=== PATIENT | female | born 1945 | race Caucasian/White ===

== ENCOUNTER 2016-04-02 20:09 | Emergency (ER) | payer BC, MEDICARE ==
[2016-04-02 20:19] VITALS: BP 145/93
--- NOTE | 2016-04-02 20:45 | UC ---
Skin Complaint HPI - HPI Summary HPI Summary: left 4th toe callous from rubbing on her shoe--got increasingly red and pain ful 03/25/16 seen pcp 03/28/16 at that time erythema was to mid foot--todat her for a recheck to remains tender a swollen with a calloused scab on joint- erythema on foot resolved as well as swelling per patient---bone in to is not tender to touch - History of Current Complaint Chief Complaint: UCWounds Time Seen by Provider: 04/02/16 20:31 Stated Complaint: SORE ON TOE Hx Obtained From: Patient ?: No Onset/Duration: Gradual Onset, Lasting Days, Resolved - but not completely resovled Timing: Constant Onset Severity: Moderate Current Severity: Mild Location: Discrete - royer just left great toe Character: Swelling, Redness Aggravating: Nothing Alleviating: Heat Associated Signs & Symptoms: Positive: Negative - Allergy/Home Medications Allergies/Adverse Reactions: Allergies Allergy/AdvReac Type Severity Reaction Status Date / Time No Known Allergies Allergy Verified 04/02/16 20:19 Home Medications: Home Medications Cephalexin CAP* [Keflex 500 CAP*] 500 mg PO TID 04/02/16 [History Confirmed 05/18] Ropinirole TAB* [Requip TAB*] 04/02/16 [History] Review of Systems Constitutional: Negative Skin: Other - calllous and erythema as descrided Eyes: Negative ENT: Negative Respiratory: Negative Cardiovascular: Negative Gastrointestinal: Negative Genitourinary: Negative Motor: Negative Neurovascular: Negative Musculoskeletal: Negative Neurological: Negative Psychological: Negative All Other Systems Reviewed And Are Negative: Yes PMH/Surg Hx/FS Hx/Imm Hx Previously Healthy: No Endocrine History Of: Denies: Diabetes, Thyroid Disease Cardiovascular History Of: Reports: Hypertension - on medication Denies: Cardiac Disorders, Congestive Heart Failure Respiratory History Of: Reports: Asthma - EXERCISE INDUCED, Bronchitis - SEVERAL YRS AGO Denies: COPD GI/ History Of: Denies: Ulcer, Renal Disease Psychological History Of: Reports: Anxiety - meds - Surgical History Surgical History: Yes Surgery Procedure, Year, and Place: colectomy, back surgery, torn meniscus, ovarian cyst, bunion right foot - Family History Known Family History: Positive: None Family History: no know medical issues in family lineage - Social History Occupation: Employed Full-time Lives: With Family Alcohol Use: Occasionally Alcohol Amount: one glass Substance Use Type: None Smoking Status (MU): Former Smoker Amount Used/How Often: LESS THAN A PACK A DAY Length of Time of Smoking/Using Tobacco: 4 YEARS Have You Smoked in the Last Year: No When Did the Patient Quit Smoking/Using Tobacco: 1968 - Immunization History Most Recent Influenza Vaccination: 01/12 Most Recent Tetanus Shot: UNKNOWN Most Recent Pneumonia Vaccination: 1993 Physical Exam Triage Information Reviewed: Yes Appearance: Well-Appearing, No Pain Distress, Well-Nourished Vital Signs: Initial Vital Signs Temp 99.2 F 04/02/16 20:14 Pulse 80 04/02/16 20:14 Resp 16 04/02/16 20:14 BP 145/93 04/02/16 20:14 Pulse Ox 96 04/02/16 20:14 Vital Signs Reviewed: Yes Eye Exam: Normal Eyes: Positive: Conjunctiva Clear ENT Exam: Normal ENT: Positive: Normal ENT inspection, Hearing grossly normal. Negative: Nasal congestion, Nasal drainage, Trismus, Muffled/hoarse voice Neck exam: Normal Neck: Positive: Supple, Nontender Respiratory Exam: Normal Respiratory: Positive: Chest non-tender, Normal breath sounds, No respiratory distress, No accessory muscle use Cardiovascular Exam: Normal Cardiovascular: Positive: RRR, No Murmur, Pulses Normal, Brisk Capillary Refill Musculoskeletal Exam: Normal Musculoskeletal: Positive: Strength Intact, ROM Intact, Edema @ - swelling left 4th toe Neurological Exam: Normal Neurological: Positive: Alert Psychological Exam: Normal Psychological: Positive: Normal Response To Family Skin: Positive: Other - as described Course/Dx - Course Course Of Treatment: elevate foot, frequent warm compresses, add Bactrim re- check with pcp - Differential Diagnoses - Skin Complaint Differential Diagnoses: Allergic Reaction, Cellulitis, Impetigo, Local Allergic Reaction - Diagnoses Provider Diagnoses: Wound infection left 4th toe Discharge - Discharge Plan Condition: Stable Disposition: HOME Prescriptions: Sulfamethox/Trimethoprim DS* [Bactrim DS 800/160 TAB*] 1 tab PO BID #13 tab Patient Education Materials: Wound Infection (ED), Heat Pack Application (ED) Referrals: Samson Balbuena MD [Primary Care Provider] - 3 Days
[2016-04-02] MEDS ORDERED: Sulfamethox/Trimethoprim DS 800/160* TAB PO ONE (20:46)
== END 2016-04-02 21:19 | disposition home or self-care (01) ==
LOC: UCEAST 20:09
DX: L08.89 Other specified local infections of the skin and subcutaneous tissue (principal); L84 Corns and callosities; Z87.891 Personal history of nicotine dependence
CPT/HCPCS: 99212; A9270-GY; G0463

== ENCOUNTER → 2016-06-28 09:38 | Day surgery (SDC) | payer BC, MEDICARE ==
[~2016-06-28 09:38] MED LIST: Buffered Lidocaine 1% SYRIN* 3 ML/SYR SYRINGE INTRADERM ONE; Lidocain 1% EPI 1:100,000 * 30 ML MDV ONE; Lidocaine 2% PF* 5 ML VIAL ONE; Midazolam* 1 MG/ML 2 ML VIAL (2 MG) ONE; Propofol* 10 MG/ML 20 ML BTL IV PUSH ONE; ceFAZolin 2 GM PREMIX(*) 2 GM/50 ML BAG IVPB ONE; fentaNYL* 50 MCG/ML 2 ML VIAL (100 MCG VIAL) ONE
[2016-06-28 13:00] VITALS: BP 108/52
== END | disposition home or self-care (01) ==
LOC: OREAST 09:38
PROVIDERS: ATTEND Plastic Surgery
DX: L72.0 Epidermal cyst (principal); D04.39 Carcinoma in situ of skin of other parts of face; I10 Essential (primary) hypertension; J45.909 Unspecified asthma, uncomplicated; C91.10 Chronic lymphocytic leukemia of B-cell type not having achieved remission; D64.9 Anemia, unspecified
CPT/HCPCS: 88304; 88305; J0690; J2250; J2704; J3010

== ENCOUNTER 2016-08-04 19:27 | Emergency (ER) | payer BC, MEDICARE ==
[2016-08-04 19:40] VITALS: BP 146/68
[2016-08-04] MEDS ORDERED: Amoxicillin/Clavulanate TAB* 875 MG PO ONE (19:52)
[2016-08-04] MEDS ORDERED: Acetaminop/Codeine 30 MG TAB* 1 TAB (300 MG/30 MG) PO ONE (19:52)
--- NOTE | 2016-08-04 19:54 | UC ---
Ear Complaint HPI - HPI Summary HPI Summary: Patient recently returned from overse[place], has had increased ear pain and fever. - History of Current Complaint Chief Complaint: UCGeneralIllness Stated Complaint: EAR ACHE,COUGH Time Seen by Provider: 08/04/16 19:41 Hx Obtained From: Patient ?: No Onset/Duration: Sudden Onset, Lasting Days Severity Initially: Moderate Severity Currently: Moderate - Allergies/Home Medications Allergies/Adverse Reactions: Allergies Allergy/AdvReac Type Severity Reaction Status Date / Time No Known Allergies Allergy Verified 06/28/16 09:59 PMH/Surg Hx/FS Hx/Imm Hx Previously Healthy: Yes Endocrine History Of: Denies: Diabetes, Thyroid Disease Cardiovascular History Of: Reports: Hypertension - on medication Denies: Cardiac Disorders, Congestive Heart Failure Respiratory History Of: Reports: Asthma - EXERCISE INDUCED, Bronchitis - SEVERAL YRS AGO Denies: COPD GI/ History Of: Denies: Ulcer, Renal Disease Psychological History Of: Reports: Anxiety - meds - Surgical History Surgical History: Yes Surgery Procedure, Year, and Place: colectomy, back surgery, torn meniscus, ovarian cyst, bunion right foot - Family History Known Family History: Positive: None Negative: Hypertension - Social History Alcohol Use: Occasionally Alcohol Amount: one glass Substance Use Type: None Smoking Status (MU): Former Smoker Amount Used/How Often: LESS THAN A PACK A DAY Length of Time of Smoking/Using Tobacco: 4 YEARS Have You Smoked in the Last Year: No When Did the Patient Quit Smoking/Using Tobacco: 1968 - Immunization History Most Recent Influenza Vaccination: 01/12 Most Recent Tetanus Shot: UNKNOWN Most Recent Pneumonia Vaccination: 1993 Review of Systems Constitutional: Negative Skin: Negative Eyes: Negative ENT: Sore Throat, Ear Ache Respiratory: Cough Cardiovascular: Negative Gastrointestinal: Negative Genitourinary: Negative Motor: Negative Neurovascular: Negative Musculoskeletal: Negative Neurological: Negative Psychological: Negative All Other Systems Reviewed And Are Negative: Yes Physical Exam Triage Information Reviewed: Yes Appearance: Well-Appearing, Well-Nourished, Pain Distress Vital Signs: Initial Vital Signs Temp 100.7 F 08/04/16 19:34 Pulse 83 08/04/16 19:34 Resp 18 08/04/16 19:34 BP 146/68 08/04/16 19:34 Pulse Ox 97 08/04/16 19:34 Vital Signs Reviewed: Yes Eye Exam: Normal Eyes: Positive: Conjunctiva Clear ENT: Positive: Hearing grossly normal, Pharyngeal erythema, TM bulging, TM dull , TM red, Tonsillar swelling Dental Exam: Normal Neck exam: Normal Neck: Positive: Supple, Nontender, Enlarged Nodes @ - behind right ear Respiratory Exam: Normal Respiratory: Positive: Chest non-tender, Lungs clear, Normal breath sounds Cardiovascular Exam: Normal Cardiovascular: Positive: RRR, No Murmur, Pulses Normal Abdominal Exam: Normal Abdomen Description: Positive: Nontender, No Organomegaly, Soft Bowel Sounds: Positive: Present Musculoskeletal Exam: Normal Musculoskeletal: Positive: Strength Intact, ROM Intact Neurological Exam: Normal Neurological: Positive: Alert, Muscle Tone Normal Psychological Exam: Normal Skin Exam: Normal Ear Complaint Course/Dx - Course Course Of Treatment: hx obtained, exam performed, meds reviewed, treated for otitis media. - Differential Dx/Diagnosis Differential Diagnosis/HQI/PQRI: Bronchitis, Cerumen Impaction, Otitis Externa, Otitis Media, Trauma Provider Diagnoses: otitis media. cervical lymphadenopathy Discharge - Discharge Plan Condition: Stable Disposition: HOME Patient Education Materials: Otitis Media (ED) Additional Instructions: 1. take the medication as prescribed. 2. Increase fluid intake 3. GEt plenty of rest 4. follow up with any worsening symptoms
== END 2016-08-04 20:15 | disposition home or self-care (01) ==
LOC: UCEAST 19:27
DX: H66.90 Otitis media, unspecified, unspecified ear (principal); I10 Essential (primary) hypertension; R59.0 Localized enlarged lymph nodes; J45.990 Exercise induced bronchospasm; F41.9 Anxiety disorder, unspecified; Z87.891 Personal history of nicotine dependence
CPT/HCPCS: 99212; A9270-GY; G0463

== ENCOUNTER 2016-08-28 07:35 | Emergency (ER) | payer BC, MEDICARE ==
[2016-08-28 07:50] VITALS: BP 111/67
--- NOTE | 2016-08-28 08:16 | UC ---
Adal Jack SooYoung, scribed for Madalyn Lambert MD on 08/28/16 at 0741 . Bite Injury/Animal HPI - HPI Summary HPI Summary: A 70 y/o F [place] [facility] [place] tick bite on R shoulder first noticed it this AM, initial onset likely yesterday while mowing the lawn. Non-engorged tick is embedded presently on right shoulder. Pt reports mild erythema at site of wound with mild discomfort. no fevers, chills. No other complaints. Pt states she is UTD with her tetanus. Associated sx: surrounding erythema. PMHx: HTN; c. diff; chronic leukemia but is not on therapy for it, previously took Rituxan 5 years ago; colon CA in 2014 with chemotherapy and surgery, pt denies being on maintenance medications.. Non-smoker, daily drinker. Patients medication reviewed this visit. - History of Current Complaint Stated Complaint: TICK Hx Obtained From: Patient, Family/Produce Wrapper - ?: No Severity Currently: Mild Pain Intensity: 0 Pain Scale Used: 0-10 Numeric Onset/Duration: Sudden Onset, Lasting Hours - first noticed this AM, likely embedded yesterday, Still Present Type of Bite: Wild Animal - tick Associated Signs And Symptoms: Positive: Erythema - Allergies/Home Medications Allergies/Adverse Reactions: Allergies Allergy/AdvReac Type Severity Reaction Status Date / Time No Known Allergies Allergy Verified 06/28/16 09:59 PMH/Surg Hx/FS Hx/Imm Hx Previously Healthy: No Endocrine History Of: Denies: Diabetes, Thyroid Disease Cardiovascular History Of: Reports: Hypertension - on medication Denies: Cardiac Disorders, Congestive Heart Failure Respiratory History Of: Reports: Asthma - EXERCISE INDUCED, Bronchitis - SEVERAL YRS AGO Denies: COPD GI/ History Of: Denies: Ulcer, Renal Disease Psychological History Of: Reports: Anxiety - meds - Surgical History Surgical History: Yes Surgery Procedure, Year, and Place: colectomy, back surgery, torn meniscus, ovarian cyst, bunion right foot - Family History Known Family History: Positive: Other - BREAST CA - sister Negative: Hypertension - Social History Occupation: Employed Part-time Lives: With Family Alcohol Use: Occasionally Alcohol Amount: one glass Substance Use Type: None Smoking Status (MU): Former Smoker Amount Used/How Often: LESS THAN A PACK A DAY Length of Time of Smoking/Using Tobacco: 4 YEARS Have You Smoked in the Last Year: No When Did the Patient Quit Smoking/Using Tobacco: 1968 - Immunization History Most Recent Influenza Vaccination: 01/12 Most Recent Tetanus Shot: UNKNOWN Most Recent Pneumonia Vaccination: 1993 Review of Systems Constitutional: Negative Skin: Other - pos: erythema, tick present at R shoulder Eyes: Negative ENT: Negative Respiratory: Negative Cardiovascular: Negative Gastrointestinal: Negative Genitourinary: Negative Motor: Negative Neurovascular: Negative Musculoskeletal: Negative Neurological: Negative Psychological: Negative All Other Systems Reviewed And Are Negative: Yes Physical Exam Triage Information Reviewed: Yes Appearance: Well-Appearing, No Pain Distress, Well-Nourished Vital Signs: Initial Vital Signs Temp 98.5 F 08/28/16 07:41 Pulse 72 08/28/16 07:41 Resp 16 08/28/16 07:41 BP 111/67 08/28/16 07:41 Pulse Ox 99 08/28/16 07:41 Vital Signs Reviewed: Yes Eye Exam: Normal Eyes: Negative: Discharge ENT Exam: Normal ENT: Positive: Hearing grossly normal Neck: Positive: Supple Respiratory Exam: Normal Respiratory: Positive: Chest non-tender, Lungs clear, Normal breath sounds Cardiovascular Exam: Normal Cardiovascular: Positive: RRR, No Murmur, Pulses Normal Abdominal Exam: Normal Abdomen Description: Positive: Nontender, No Organomegaly, Soft Bowel Sounds: Positive: Present Musculoskeletal Exam: Normal Neurological Exam: Normal Neurological: Positive: Alert Psychological Exam: Normal Skin: Positive: Other - Right superior, anterior shoulder pt with a 2mm area erythema and live, burrowing tick - not engorged Bite Injury Course/Dx - Course Course Of Treatment: pt with live, non-engorged tick burrowed right anterior/ superior shoulder. area prepped with alcohol. Using tick remover, gentle traction and counterclockwise removed tick intact. area cleansed with alcohol. I spoke at length with pt and spouse regarding doxy prophylaxis and CDC recommendations. tick not engorged, < 24 hours. pt with h/o c dif. no doxy given. wound care. Pt in agreement with plan - Differential Dx/Diagnosis Provider Diagnoses: tick bite Discharge - Discharge Plan Condition: Stable Disposition: HOME Patient Education Materials: Tick Bite (ED) Referrals: Samson Balbuena MD [Primary Care Provider] - Additional Instructions: You had a tick removed from your skin today. Okay to take ibuprofen (Advil, Motrin) and Tylenol as needed for discomfort Keep area clean and dry Check yourself daily for ticks after you have been working in the [employer] Contact your doctor or return with questions or concerns Approach to prophylaxis : According to the Infectious Diseases Society of [place] (IDSA) guidelines that recommend antibiotic prophylaxis only in patients who meet all of the following criteria: 1. Attached tick identified as an adult or nymphal I. scapularis tick (deer tick). 2. Tick is estimated to have been attached for 36 hours (by degree of engorgement or time of exposure). 3. Prophylaxis is begun within 72 hours of tick removal. Local rate of infection of ticks with B. burgdorferi is 20 percent if attached for over 48 hours (these rates of infection have been shown to occur in parts of [place], parts of the [facility], and [place] If you experience a tick and time of attachment is believed to be less than 36 hours, you may remove the tick with head intact and no need for prophylaxis. If over 36 hours, please come into UC. Prophylactic doxycycline is not recommended for ticks attached less than 36 hours. The documentation as recorded by the Adal tracey SooYoung accurately reflects the service I personally performed and the decisions made by , Madalyn Lambert MD.
== END 2016-08-28 08:20 | disposition home or self-care (01) ==
LOC: UCEAST 07:35
DX: S40.261A Insect bite (nonvenomous) of right shoulder, initial encounter (principal); W57.XXXA Bitten or stung by nonvenomous insect and other nonvenomous arthropods, initial encounter; Y93.H2 Activity, gardening and landscaping
CPT/HCPCS: 99211; G0463

== ENCOUNTER 2017-12-20 15:35 | Emergency (ER) | payer MEDICARE, BC ==
[2017-12-20] MEDS ORDERED: Propranolol IV* 1 MG/ML 1 ML VIAL IV PUSH ONE (15:50)
[2017-12-20] MEDS ORDERED: HYDROmorphone INJ* 2 MG/ML CARPUJECT SYRINGE IV SLOW PU ONE (15:56)
[2017-12-20] MEDS ORDERED: NS 0.9% 1000 ML*IV.FLUID IV ONE (16:02)
[2017-12-20] MEDS ORDERED: Midazolam* 1 MG/ML 10 ML VIAL (10 MG) IV ONE (16:27)
--- NOTE | 2017-12-20 16:27 | ED ---
Upper Extremity Pain - HPI Summary HPI Summary: This patient is a 72 year old F presenting to [facility] with a chief complaint of dislocated left shoulder s/p a fall at 1330. Pt states she last had oral intake at 1200. Pt denies anesthesia reactions. Pt endorses full ROM in fingers. PMHx HTN; per EMS all vitals were stable en route. Pt was walking down stairs with laundry when she caught her heel on a step and started to fall. She said that she grabbed at a railing with her left arm, which dislocated from pulling while falling. - History of Current Complaint Chief Complaint: EDExtremityUpper Stated Complaint: FALL/SHOULDER PAIN Hx Obtained From: Patient Mechanism Of Injury: Fall From A Standing Position, Other - pulled Onset/Duration: Started Hours Ago, Traumatic, Still Present Timing: Constant Severity Initially: Severe Severity Currently: Severe Pain Location: Shoulder - L Aggravating Factor(s): Movement Alleviating Factor(s): Nothing Associated Signs & Symptoms: Positive: Other. Negative: Fever, Chest Pain, SOB , Back Pain, Neck Pain - Allergies/Home Medications Allergies/Adverse Reactions: Allergies Allergy/AdvReac Type Severity Reaction Status Date / Time No Known Allergies Allergy Verified 10/04/16 09:03 PMH/Surg Hx/FS Hx/Imm Hx Endocrine/Hematology History: Reports: Hx Anemia - CHRONIC LEUKEMIA SINCE AGE 48 , Other Endocrine/Hematological Disorders - Chronic Leukemia since Age 48 Denies: Hx Diabetes, Hx Systemic Lupus Erythematosus, Hx Thyroid Disease Cardiovascular History: Reports: Hx Hypertension - on medication, Hx Valvular Heart Disease - PROLAPSE VALVE Denies: Hx Congestive Heart Failure Respiratory History: Reports: Hx Asthma - EXERCISE INDUCED Denies: Hx Chronic Obstructive Pulmonary Disease (COPD) GI History: Reports: Other GI Disorders - COLECTOMY FOR COLON CANCER Denies: Hx Ulcer History: Denies: Hx Dialysis, Hx Renal Disease Musculoskeletal History: Reports: Hx Arthritis - HANDS, Other Musculoskeletal History - 1968 HX OF RUPTURED DISC Denies: Hx Rheumatoid Arthritis Sensory History: Reports: Hx Cataracts - BILATERAL, Hx Contacts or Glasses - CONTACTS WILL WEAR GLASSES DAY OF SURGERY Denies: Hx Hearing Aid Opthamlomology History: Reports: Hx Cataracts - BILATERAL, Hx Contacts or Glasses - CONTACTS WILL WEAR GLASSES DAY OF SURGERY Psychiatric History: Reports: Hx Anxiety - meds - Cancer History Cancer Type, Location and Year: colon Hx Chemotherapy: Yes - COLON Hx Radiation Therapy: No - Surgical History Surgery Procedure, Year, and Place: colectomy, back surgery, torn meniscus, ovarian cyst, bunion right foot, hernia repair ? left groin Hx Anesthesia Reactions: No Infectious Disease History: No Infectious Disease History: Reports: Hx Clostridium Difficile, Hx of Known/ Suspected MRSA - abdomen 2014 Denies: Hx Hepatitis, Hx Human Immunodeficiency Virus (HIV), Hx Shingles, Hx Tuberculosis, Hx Known/Suspected VRE, Hx Known/Suspected VRSA, History Other Infectious Disease, Traveled Outside the [place] in Last 30 Days - Family History Known Family History: Positive: Other - BREAST CA - sister Negative: Hypertension - Social History Occupation: Retired Alcohol Use: Daily Alcohol Amount: one glass wine Substance Use Type: Reports: None Smoking Status (MU): Former Smoker Amount Used/How Often: LESS THAN A PACK A DAY Length of Time of Smoking/Using Tobacco: 4 YEARS Have You Smoked in the Last Year: No Review of Systems Negative: Fever Negative: Blurred Vision, Diplopia Negative: Sore Throat, Ear Ache Negative: Chest Pain Negative: Shortness Of Breath Negative: Abdominal Pain Positive: no symptoms reported. Negative: dysuria Positive: Arthralgia - left shoulder, Decreased ROM Negative: Rash Negative: Headache All Other Systems Reviewed And Are Negative: No Physical Exam - Summary Physical Exam Summary: Appearance: Alert, conversive, nontoxic appearing Skin: Warm, dry, no mottling, no rashes, no contusions HEENT: EOMI, PERRL, moist mucous membranes Neck: No masses on the neck, supple Respiratory: Clear to auscultation, breath sounds present, no rales, no rhonchi , no wheezes Cardiovascular: RRR, pulses are symmetrical in both lower and upper extremities. Good radial pulse in LUE. Abdomen: Soft, non-tender Bowel Sounds: Present Musculoskeletal: No CVA tenderness, deformity to left shoulder, unable to rotate , pain with movement of elbow, able to move and flex wrist. Neurological: A&Ox3, CN II-XII Intact, moving all extremities symmetrically Psychiatric: Normal affect and mood Triage Information Reviewed: Yes Vital Signs On Initial Exam: Initial Vitals Temp Pulse Resp BP Pulse Ox 97.5 F 81 20 138/68 98 12/20/17 15:49 12/20/17 15:49 12/20/17 15:49 12/20/17 15:49 12/20/17 15:49 Vital Signs Reviewed: Yes Procedures - Joint Reduction Left shoulder Joint Reduction Site: shoulder (L) Conscious Sedation: Yes Pre-Procedure NV Exam: Yes - intact Post Joint Reduction Film: no fracture seen Diagnostics - Vital Signs Vital Signs Temp Pulse Resp BP Pulse Ox 12/20/17 16:00 20 12/20/17 15:49 97.5 F 81 20 138/68 98 - Laboratory Lab Statement: Any lab studies that have been ordered have been reviewed, and results considered in the medical decision making process. - Radiology Left Shoulder XR Xray Interpretation: Positive (See Comments) Radiology Interpretation Completed By: Radiologist - Left shoulder dislocation. Dr. Graves has reviewed this report. Post-reduction Xray Interpretation: Positive (See Comments) Radiology Interpretation Completed By: Radiologist - INTERVAL REDUCTION OF LEFT SHOULDER DISLOCATION. Dr. Graves has reviewed this report. Re-Evaluation - Re-Evaluation First Eval Re-Evaluation Time: 16:27 Change: Improved Comment: Pain is better but she is still not tolerating any movement of the shoulder. Second Eval Re-Evaluation Time: 18:43 Change: Improved Comment: Pt is still a little groggy, but awake and conversive. BP is a little soft, O2 sat is 90. She endorses she is having trouble staying awake, and denies any recollection of the procedure. Third Eval Re-Evaluation Time: 21:40 Change: Improved Comment: Pt feels much better, able to ambulate to bathroom, sit up in bed. Course/Dx - Course Course Of Treatment: A pre-reduction shoulder XR shows a left shoulder dislocation. A post-reduction shoulder XR shows INTERVAL REDUCTION OF LEFT SHOULDER DISLOCATION. - Diagnoses Provider Diagnoses: Shoulder dislocation Discharge - Sign-Out/Discharge Documenting (check all that apply): Patient Departure - discharge - Discharge Plan Condition: Stable Disposition: HOME Referrals: Aly Verdin DO [Primary Care Provider] - - Attestation Statements Document Initiated by Scribe: Yes Documenting Scribe: Steve Raygoza Provider For Whom Scribe is Documenting (Include Credential): Dr. Kira Graves MD Scribe Attestation: Steve Jack scribed for Dr. Kira Graves MD on 12/20/17 at 2140.
[2017-12-20] MEDS ORDERED: fentaNYL* 50 MCG/ML 2 ML VIAL (100 MCG VIAL) IV SLOW PU ONE (16:28)
--- NOTE | 2017-12-20 16:34 | RAD ---
HISTORY: shoulder deformity, Probable dislocation COMPARISONS: None VIEWS: 2 , frontal and outlet views of the left shoulder FINDINGS: BONE DENSITY: Normal. BONES: There is no displaced fracture. JOINTS: There is no arthropathy. ALIGNMENT: There is anterior dislocation of the humeral head with suspected the glenoid fossa. SOFT TISSUES: Unremarkable. OTHER FINDINGS: None. IMPRESSION: LEFT SHOULDER DISLOCATION.
--- NOTE | 2017-12-20 18:03 | RAD ---
HISTORY: post reduction COMPARISONS: December 21, 2019 4:23 PM VIEWS: 2 , frontal and outlet views of the left shoulder FINDINGS: BONE DENSITY: Normal. BONES: There is no displaced fracture. JOINTS: There is no arthropathy. ALIGNMENT: There has been interval reduction in position. SOFT TISSUES: Unremarkable. OTHER FINDINGS: None. IMPRESSION: INTERVAL REDUCTION OF LEFT SHOULDER DISLOCATION.
--- NOTE | 2017-12-20 18:26 | PN ---
Progress Note - Progress Note Date of Service: 12/20/17 Note: Pt is a 72 y/o F with R shoulder displacement. Assisted Dr. Graves in R shoulder reduction. This is kyung, Tejinder Galeas, documenting for attending Dr. Dusty Gaitan MD.
[2017-12-21 03:45] VITALS: BP 96/70
== END 2017-12-21 03:45 | disposition home or self-care (01) ==
LOC: ED 15:35
DX: S43.005A Unspecified dislocation of left shoulder joint, initial encounter (principal); X58.XXXA Exposure to other specified factors, initial encounter; Y92.9 Unspecified place or not applicable; I10 Essential (primary) hypertension; Z87.891 Personal history of nicotine dependence
CPT/HCPCS: 23650; 96374; 96375; 99285; J1170; J1800; J2250; J3010

== ENCOUNTER 2018-04-29 09:00 | Inpatient (IN) | payer MEDICARE, BC ==
--- NOTE | 2018-04-18 18:14 | HP ---
HISTORY AND PHYSICAL: DATE OF ADMISSION/SURGERY: 04/29/18 DATE OF OFFICE VISIT: 04/18/18 SURGEON: Allison Pierce MD * (DICTATED BY DERICK TOMAS) PROCEDURE: Left total knee arthroplasty. CHIEF COMPLAINT: Left knee pain. HISTORY OF PRESENT ILLNESS: Ms. Coto is a 72-year-old female with continued complaints of left knee pain. She has failed conservative treatment and elected to proceed with a left total knee arthroplasty. PAST MEDICAL HISTORY: 1. Hypertension. 2. CLL. 3. History of colon cancer. PAST SURGICAL HISTORY: 1. Spine surgery. 2. Bunionectomy. 3. Left knee arthroscopy. 4. Hernia repair. 5. Colon resection. 6. Oophorectomy. CURRENT MEDICATIONS: 1. Meloxicam 15 mg a day. 2. Vitamin D3. 3. Calcium. 4. Amlodipine/valsartan/hydrochlorothiazide 5/160/12.5 mg daily. ALLERGIES: No known drug allergies. FAMILY HISTORY: Cancer, coronary artery disease, and hypertension. SOCIAL HISTORY: She is a 72-year-old female. She lives with her . She does not smoke or use drugs. Uses occasional alcohol. REVIEW OF SYSTEMS: A complete 14-point review of systems was reviewed with the patient. It was positive for history of a MRSA infection in 2015. She denies history of DVT, PE, hepatitis, HIV, or anesthesia problems. PHYSICAL EXAMINATION GENERAL: She is well developed, well nourished, in no acute distress. VITAL SIGNS: She stands 69.5 inches tall, weighs 162 pounds. Her blood pressure is 130/80, her heart rate is 80. HEENT: Normocephalic, atraumatic. NECK: Supple. No palpable lymph nodes. PULMONARY: The lungs are clear to auscultation bilaterally. CARDIO: Regular rate and rhythm. Strong S1, S2. ABDOMEN: Soft, nontender, nondistended. NEUROLOGICAL: She is alert and oriented x3. MUSCULOSKELETAL: Left lower extremity, the skin is intact. There are no open wounds or abrasions. She has a 12 degree valgus deformity with MCL laxity, tenderness over the medial joint line. Range of motion is 10 to 130 degrees of flexion. She has 4+/5 dorsiflexion strength and 2+ dorsalis pedis pulse. She has intact sensation. ASSESSMENT AND PLAN: Ms. Coto is a 72-year-old female with continued complaints of left knee pain secondary to end-stage osteoarthritis. She has failed conservative treatment and elected to proceed with a left total knee arthroplasty. This surgery is scheduled for 04/29/[address] Pierce discussed the risks and benefits of the surgery at today's visit and all of her questions were answered. She will follow up with Dr. Pierce 2 weeks after the surgery. DERICK TOMAS [id number]/[facility] #: [id number] MTDInessa
[~2018-04-29 09:00] MED LIST changes: +Acetaminophen TAB* 325 MG PO ONE; +Buffered Lidocaine 1% SYRIN* 1 ML/SYRINGE INTRADERM ONE; -Buffered Lidocaine 1% SYRIN* 3 ML/SYR SYRINGE INTRADERM ONE; +Famotidine IV* 10 MG/ML 2 ML (20 mg) IV ONE; +Gabapentin CAP(*) 300 MG PO ONE; +Lactated Ringers 1000 ML Bag* 1,000 ML IV SCH; -Lidocain 1% EPI 1:100,000 * 30 ML MDV ONE; -Lidocaine 2% PF* 5 ML VIAL ONE; -Midazolam* 1 MG/ML 2 ML VIAL (2 MG) ONE; -Propofol* 10 MG/ML 20 ML BTL IV PUSH ONE; +Tranexamic Acid 1,000 MG in NS 0.9% 50 ML* (outpatient use) IV SCH; -ceFAZolin 2 GM PREMIX(*) 2 GM/50 ML BAG IVPB ONE; +celeCOXIB CAP* 200 MG PO ONE; -fentaNYL* 50 MCG/ML 2 ML VIAL (100 MCG VIAL) ONE
--- OUTSIDE RECORDS SUMMARY | 2018-04-29 12:22 | XMS REPORT | Continuity of Care Document ---
:1945 External Reference #:[id number] Author Name Lucio Montiel Care Team Providers Name Role Phone Aly Verdin DO Primary Care Physician Unavailable Payers Type Date Identification Numbers Payment Provider Subscriber Policy Number: [id number] Medicare Yusuf Coto PayID: [id number] [address] [place] [address] Policy Number: [id number] [employer] Yusuf Coto PayID: [id number] [address] [address] [place] [address] Effective: 2012 Policy Number: [id number] [employer] Yusuf Coto Expires: 2017 PayID: [id number] [address] [address] [place] [address] Advance Directives Description No Information Available Problems Date Description Provider Status Onset: 01/10/2018 Localized, primary osteoarthritis Allison Pierce M.D. Active Family History Date Family Member(s) Problem(s) Comments General Cancer General Heart Disease General Hypertension Social History Type Date Description Comments Sex Unknown Lives With Spouse Tobacco Use Start: Unknown End: Patient is a former smoker smoked less than 1 ppd Unknown in college Smoking Status Reviewed: 04/18/18 Patient is a former smoker smoked less than 1 ppd in college Allergies, Adverse Reactions, Alerts Description No Known Drug Allergies Medications Medication Date Status Form Strength Qnty SIG Indications Ordering Provider Meloxicam 12/ Active Tablets 15mg 30tabs 1 by M25.562 Allison 2018 mouth Stan, every day M.D. Vitamin D-3 00// Active Capsules 1000Unit 1 by Unknown 0000 mouth every day Calcium + D 00/ Active Tab qd Unknown 0000 Amlodipine-Vals / Active Tablets 5-160-12.5 Unknown shaquille-HCTZ 0000 mg Doxycycline 10/05/ Hx Capsules 100mg 20caps 1 cap by Mazin Brian 2016 - mouth Macqueen, 12/24/ twice a M.D. 2018 day with food Orphenadrine / Hx Tablets ER 100mg 1 at Unknown Citrate ER 0000 - 12HR bedtime 12/24/ as needed 2018 Norvasc / Hx Tablets 5mg 1 by Unknown 0000 - mouth 12/24/ every day 2018 Fluorouracil / Hx Solution chemo Unknown - 2015 Leucovorin / Hx Solution chemo Unknown Calcium - Rec 2015 Acetaminophen / Hx Tablets Unknown - 2015 Ativan / Hx Solution Unknown 2015 Medications Administered in Office Medication Date Status Form Strength Qnty SIG Indications Ordering Provider Diana Administered Injection Allison 40MG 018 Lan Pierce Immunizations Description No Information Available Vital Signs Date Vital Result Comment 04/18/2018 8:39am Height 69.5 inches 5'9.50" Weight 162.00 lb Heart Rate 80 /min BP Systolic 130 mmHg BP Diastolic 80 mmHg Respiratory Rate 16 /min Body Temperature 98.0 F BMI (Body Mass Index) 23.6 kg/m2 02/07/2018 8:00am Height 69.5 inches 5'9.50" Weight 152.00 lb BP Systolic 116 mmHg BP Diastolic 67 mmHg Respiratory Rate 15 /min Pain Level 2 BMI (Body Mass Index) 22.1 kg/m2 01/10/2018 1:29pm Height 69.5 inches 5'9.50" Weight 159.00 lb Heart Rate 72 /min BP Systolic 128 mmHg BP Diastolic 80 mmHg BMI (Body Mass Index) 23.1 kg/m2 01/08/2018 12:58pm Height 69 inches 5'9" Weight 160.00 lb BP Systolic 126 mmHg BP Diastolic 70 mmHg Respiratory Rate 15 /min Body Temperature 97.4 F Pain Level 0 BMI (Body Mass Index) 23.6 kg/m2 12/25/2017 8:32am Height 69 inches 5'9" Weight 160.00 lb BP Systolic 130 mmHg BP Diastolic 90 mmHg Respiratory Rate 15 /min Body Temperature 96.9 F Pain Level 1 BMI (Body Mass Index) 23.6 kg/m2 10/05/2015 3:17pm Height 69 inches 5'9" Weight 148.25 lb Heart Rate 96 /min BP Systolic Sitting 134 mmHg BP Diastolic Sitting 80 mmHg Respiratory Rate 14 /min Body Temperature 99.9 F O2 % BldC Oximetry 96 % BMI (Body Mass Index) 21.9 kg/m2 09/21/2015 1:34pm Height 69 inches 5'9" Weight 145.00 lb Heart Rate 100 /min BP Systolic Sitting 126 mmHg BP Diastolic Sitting 80 mmHg Respiratory Rate 14 /min Body Temperature 99.1 F BMI (Body Mass Index) 21.4 kg/m2 Results Test Date Facility Test Result H/L Range Note CBC Auto Diff 09/26/2015 [facility] White Blood 19.2 10^3/uL High 3.5-10.[address] [place] [address] [phone] Red Blood Count 4.03 10^6/uL N 4.0-5.4 Hemoglobin 12.0 g/dL N 12.0-16.0 Hematocrit 37 % N 35-47 Mean Corpuscular Volume 91 fL N 80-97 Mean Corpuscular Hemoglobin 30 pg N 27-31 Mean Corpuscular HGB Conc 33 g/dL N 31-36 Red Cell Distribution Width 15 % N 10.5-15 Platelet Count 146 10^3/uL Low 150-450 Mean Platelet Volume 9 um3 N 7.4-10.4 Abs Neutrophils 3.3 10^3/uL N 1.5-7.7 Abs Lymphocytes 15.3 10^3/uL High 1.0-4.8 Abs Monocytes 0.6 10^3/uL N 0-0.8 Abs Eosinophils 0 10^3/uL N 0-0.6 Abs Basophils 0 10^3/uL N 0-0.2 Abs Nucleated RBC 0.03 10^3/uL N Granulocyte % 17.0 % Low 38-83 Lymphocyte % 79.3 % High 25-47 Monocyte % 3.3 % N 1-9 Eosinophil % 0.2 % N 0-6 Basophil % 0.2 % N 0-2 Nucleated Red Blood Cells % 0.1 N Laboratory test 09/26/2015 [facility] Pathologist Review (SEE NOTE) N [address] [place] [address] [phone] Reference Lab Test See Comment N 3 Laboratory 09/23/2015 [facility] C Reactive 5.28 mg/L High < 5.00 4 test finding [address] [place] [address] [phone] Malaria Prep 09/23/2015 [facility] RBC Parasite No Parasites N No Parasite [address] Smear See <[place] [address] NOTE> [phone] Blood Smear Pathologist Review (SEE NOTE) N 6 Laboratory test 09/23/2015 [facility] Giardia Lamblia SEE RESULT [address] [place] [address] [phone] Stool Culture SEE RESULT BELOW 8 1 [facility] [address] 2 Lymphocytosis with morphologic features suggestive of chronic lymphocytic leukemia. Mild thrombocytopenia noted. Additional studies may be considered as clinically warranted. Reviewed by Dr. Baxter 3 Test Result Flag Unit RefValue Strongyloides Ab, IgG, S Negative Negative No detectable levels of IgG antibodies to Strongyloides. Repeat testing in 1-2 weeks if clinically indicated. Test Performed by: [facility] - [address] [address] Laboratory Technician: Samson Young II, M.D., Ph.D. 4 Acute inflammation: >10.00 5 No Parasites Seen 6 Reviewed by Ashlyn Pastor MD 7 SEE RESULT BELOW Name: YUSUF COTO : [address]: Mazin Olivier MD Acct: [id number] Unit: [id number] AGE: 69 Location: [facility] Re09/23/15 SEX: F Status: REG REF SPEC: [id number] MEGHAN: 09/23/15-[address]: Mazin Olivier MD REQ: [id number] RECD: 09/23/15 STATUS: RES _ SOURCE: STOOL SPDESC: ORDERED: Stool Culture, Fecal Lactoferr, Giardia Antigen Procedure Result Reported Site Stool Culture PENDING Stool Specimen Description PENDING Shiga Toxin 1 2 PENDING Fecal Lactoferrin (Stool WBC) PENDING Giardia Antigen Screen Final 09/23/15- 1446 ML Organism 1 Negative Giardia Giardia antigen testing performed by enzyme immunoassay. If patient is immunocompromised or has traveled to or is from a developing country, a full ova and parasite exam with microscopic (OPMIC) is recommended. All samples will be held one month in case full ova and parasite testing is requested. Contact the Microbiology Department at [phone]. * ML - MAIN LAB ([facility]) . END OF REPORT * ML=Testing performed at Main Lab DEPARTMENT OF PATHOLOGY, [address] [place] [address] Gumaro Baxter M.D. Director [facility] # [id number] 8 SEE RESULT BELOW Name: EDMUNDYUSUF S : [address]: Mazin Olivier MD Acct: [id number] Unit: [id number] AGE: 69 Location: [facility] Re09/23/15 SEX: F Status: REG REF SPEC: [id number] MEGHAN: 09/23/[address]: Mazin Olivier MD REQ: [id number] RECD: 09/23/15 STATUS: COMP _ SOURCE: STOOL SPDESC: ORDERED: Stool Culture, Fecal Lactoferr, Giardia Antigen Procedure Result Reported Site Stool Culture Final 09/25/15- 1047 ML Result No enteric pathogens isolated Testing for Salmonella, Shigella, Aeromonas, Plesiomonas, Yersinia and Campylobacter are included in a Stool Culture. Vibrio spp not routinely tested for in a stool culture. If testing is desired, please request specifically when placing test order. Sensitivities not routinely performed on stool isolates, as antibiotics may prolong the carriage rate of bacteria. Please contact the microbiology lab if sensitivities are required. Stool Specimen Description Final 09/23/15- 1450 ML Stool Color Brown Stool Form Nonformed Stool Consistency Soft Shiga Toxin 1 2 Final 09/26/15- 0814 ML Organism 1 Negative Shiga Toxin 1 2 Immunochromatographic Assay CONTINUED ON NEXT PAGE * ML=Testing performed at Main Lab DEPARTMENT OF PATHOLOGY, [address] [place] [address] Gumaro Baxter M.D. Director [facility] # [id number] Patient: YUSUF COTO [id number] (Continued) Specimen: [id number] Collected: 09/23/15 Received: 09/23/15 (Continued) Procedure Result Reported Site Shiga Toxin 1 2 Final (continued) 09/26/15- 813 Fecal Lactoferrin (Stool WBC) Final 09/23/15- 1452 ML Fecal Lactoferrin Negative by Immunoassay Giardia Antigen Screen Final 09/23/15- 1446 ML Organism 1 Negative Giardia Giardia antigen testing performed by enzyme immunoassay. If patient is immunocompromised or has traveled to or is from a developing country, a full ova and parasite exam with microscopic (OPMIC) is recommended. All samples will be held one month in case full ova and parasite testing is requested. Contact the Microbiology Department at [phone]. * ML - MAIN LAB ([facility]) . END OF REPORT * ML=Testing performed at Main Lab DEPARTMENT OF PATHOLOGY, [address] [place] [address] Gumaro Baxter M.D. Director [facility] # [id number] Procedures Date Code Description Status 01/10/2018 01212 Inject/Drain Joint/Bursa Major W/O US Completed 06/06/2015 09479664 Colonoscopy Completed 06/18/2014 08458 EKG, Interpretation Only Completed 06/10/2014 73827198 Colonoscopy Completed Encounters Type Date Location Provider Dx Diagnosis Office Visit 02/07/2018 Orthopedic Allison Pierce, M25.561 Pain in right 8:00a [facility] knee M25.562 Pain in left knee M25.461 Effusion, right knee M25.462 Effusion, left knee M17.12 Unilateral primary osteoarthritis, left knee M21.062 Valgus deformity, not elsewhere classified, left knee Office Visit 02/05/2018 Orthopedic Daniela Camilo3.015D Anterior 8:00a [facility] dislocation of C.M.A. left humerus, subsequent encounter Office Visit 01/10/2018 Orthopedic Allison Pierce, M25.562 Pain in left knee 1:30p [facility] M25.462 Effusion, left knee M17.12 Unilateral primary osteoarthritis, left knee M21.062 Valgus deformity, not elsewhere classified, left knee Office Visit 01/08/2018 Orthopedic Daniela Camilo3.015D Anterior 1:00p [facility] dislocation of C.M.A. left humerus, subsequent encounter Office Visit 12/25/2017 Leanne Camilo3.015A Anterior 8:15a [facility] dislocation of C.M.A. 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 unspecified Diseases D72.829 Elevated white blood cell count, unspecified R59.0 Localized enlarged lymph nodes C26.0 Malignant neoplasm of intestinal tract, part unspecified Z92.21 Personal history of antineoplastic chemotherapy Z86.14 Personal history of methicillin resis staph infection Office Visit 09/04/2015 [facility] R65.10 [facility] 9[facility]a [facility] 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 at [facility]04/29/2018 9:30 am - Everett Bryant PA-C at [facility]04/29/2018 9:30 am - DERICK Vo at [facility]04/29/2018 9:30 am - Allison Pierce M.D. at [facility]04/18/2018 - Allison Pierce M.D.M25.562 Pain in left kneeFollow up:Follow up: 2 weeks after usqpdiuU82.462 Effusion, left kneeM17.12 Unilateral primary osteoarthritis, left kneeM21.062 Valgus deformity , not elsewhere classified, left knee
[2018-04-29] MEDS ORDERED: Gabapentin CAP(*) 300 MG ONE (13:32)
[2018-04-29] MEDS ORDERED: fentaNYL* 50 MCG/ML 2 ML VIAL (100 MCG VIAL) ONE ×4 (13:32→18:06)
[2018-04-29] MEDS ORDERED: Propofol* 10 MG/ML 20 ML BTL ONE (13:32)
[2018-04-29] MEDS ORDERED: Famotidine IV* 10 MG/ML 2 ML (20 mg) ONE (13:32)
[2018-04-29] MEDS ORDERED: Lidocaine 2% PF * 5 ML VIAL ONE ×2 (13:32→15:43)
[2018-04-29] MEDS ORDERED: celeCOXIB CAP* 100 MG ONE (13:32)
[2018-04-29] MEDS ORDERED: KETAMINE HCL* 50 MG/ML 10 ML VIAL ONE (13:32)
[2018-04-29] MEDS ORDERED: Ondansetron INJ* 2 MG/ML VIAL ONE (13:32)
[2018-04-29] MEDS ORDERED: Dexamethasone IV* 4 MG/ML 1 ML (4 MG) ONE (13:32)
[2018-04-29] MEDS ORDERED: Acetaminophen TAB* 325 MG ONE (13:32)
[2018-04-29] MEDS ORDERED: Midazolam* 1 MG/ML 10 ML VIAL (10 MG) ONE (13:33)
[2018-04-29] MEDS ORDERED: ceFAZolin 2 GM PREMIX in ORs 2 GM/50 ML BAG IVPB ONE (13:33)
[2018-04-29] MEDS ORDERED: ROPIVACAINE 5 MG/ML 30 ML BTL (0.5%) ONE ×2 (14:10→14:28)
[2018-04-29] MEDS ORDERED: Propofol* 500 MG/50 ML BTL ONE (14:10)
[2018-04-29] MEDS ORDERED: EPHEDrine (Pressors)* 50 MG/ML VIAL ONE (15:38)
[2018-04-29] MEDS ORDERED: Naloxone* 0.4 MG/ML 1 ML VIAL IV PRN (16:54)
[2018-04-29] MEDS ORDERED: Ondansetron INJ* 2 MG/ML VIAL IV PRN ×2 (16:54→17:45)
[2018-04-29] MEDS ORDERED: diPHENhydraMINE IV* 50 MG/ML 1 ml VIAL (BENADRYL) IV PRN (17:45)
[2018-04-29] MEDS ORDERED: Acetaminophen TAB* 325 MG PO PRN (17:45)
[2018-04-29] MEDS ORDERED: Magnesium Hydroxide LIQ* 30 ML UDC PO PRN (17:45)
[2018-04-29] MEDS ORDERED: Bisacodyl SUPP* 10 MG SUPP PR PRN (17:45)
[2018-04-29] MEDS ORDERED: oxyCODONE/Acetamin 5/325 MG* TAB PO PRN (17:45)
[2018-04-29] MEDS: fentaNYL* 50 MCG/ML 2 ML VIAL (100 MCG VIAL) IV PRN ×2 (18:07→18:24)
[2018-04-29] MEDS ORDERED: Morphine INJ* 2 MG/ML 1 ML SYRINGE (TWO MG - NEW SYRINGE VERSION) ONE (19:51)
[2018-04-29] MEDS: Lactated Ringers 1000 ML Bag* 1,000 ML IV SCH (19:59)
[2018-04-29] MEDS ORDERED: Warfarin TAB(*) 6 MG PO ONE (20:00)
[2018-04-29] MEDS: oxyCODONE TAB* 5 MG TAB PO PRN (20:06)
--- NOTE | 2018-04-29 20:33 | CONS ---
CC: Dr. Balbuena; Dr. Alvarez; Dr. Pierce * CONSULTATION REPORT: DATE OF CONSULT: 04/29/18 PRIMARY CARE PROVIDER: Dr. Balbuena. PHYSICIAN REQUESTING THE CONSULT: Dr. Pierce in regard of postoperative management of hypertension in a patient status post left knee replacement. CHIEF COMPLAINT: None. HISTORY OF PRESENT ILLNESS: Selam Coto is a 72-year-old female with history of CLL and hypertension as well as colon cancer who is currently status post left knee replacement. She is seen in the postoperative unit. She is sedated. She is able to give me minimal information due to drifting off to sleep frequently during my evaluation. Her , who is by the bedside, is helpful with giving some of medical information that is included below. PAST MEDICAL HISTORY: 1. History of hypertension. 2. History of colon cancer, status post colectomy and post colectomy MRSA infection. 3. History of CLL. 4. History of cataract surgery. 5. History of C. diff in 2015. 6. Status post bunionectomy and meniscus repair remotely. 7. History of D and C and oophorectomy. MEDICATIONS: Outpatient medications include: 1. Meloxicam 7.5 mg b.i.d. p.r.n. 2. Vitamin D 600 mg daily. 3. Vitamin D3 2000 units daily. 4. Calcium carbonate 600 mg b.i.d. p.r.n. 5. Amlodipine/valsartan 5/160 mg, a total of 1 tablet daily. ALLERGIES: No known drug allergies. FAMILY HISTORY: Mother with history of colon cancer. Father with history of heart disease. SOCIAL HISTORY: The patient denies any tobacco, alcohol, or drug use. She is and her surrogate decision maker is her , by her bedside. REVIEW OF SYSTEMS: The patient denies any pain. She is lethargic postoperatively. All the other systems were unable to be reviewed due to the patient's lethargy and sedation postoperatively. PHYSICAL EXAM: Blood pressure 135/72, heart rate of 87 and regular, respiratory rate 12, oxygen saturation 94% on 4 L of oxygen nasal cannula, temperature of 97.0. General: The patient is a very pleasant 72-year-old female who is lethargic, but when awakened, she is alert and oriented x3, but drifts quickly to sleep. The patient is in no acute distress. HEENT: Head: Atraumatic, normocephalic. Eyes: Pupils are equal, reactive to light and accommodation. Oropharynx clear. Mucosa moist. Neck: Supple. No JVD. No bruit bilaterally. Cardiovascular: Regular rate and rhythm. No murmur. Respiratory: Clear to auscultation bilaterally. Abdomen: Soft, nontender. Bowel sounds present in all 4 quadrants. Extremities: There is no edema. Pulses are +2 bilaterally. There is no clubbing or cyanosis. The left knee is covered with postoperative dressing and a cryo unit. On neuro evaluation, speech clear. Cranial nerves II through XII grossly intact. Motor strength is 5/5 in bilateral upper extremities and right lower extremity. Left lower extremity strength, which is a postoperative extremity, was not evaluated. Psychiatric Evaluation: The patient is sedated postoperatively. That limited psychiatric evaluation. DIAGNOSTIC STUDIES/LAB DATA: Laboratory data, none currently. ASSESSMENT AND PLAN: 1. In regard to postoperative management of patient status post left total knee arthroplasty, this is going to be as per Dr. Pierce's service. 2. For DVT prophylaxis postoperatively, the patient already was placed on warfarin and enoxaparin. 3. The patient has a history of chronic lymphocytic leukemia, which is managed conservatively by Dr. Alvarez. She has history of chronic elevated white blood cell count due to that. 4. For her hypertension, I recommend continuation of Norvasc as well as valsartan with hold parameters. 5. The patient's code status is full and her surrogate is her . Thank you very much for allowing our service to see your patient in consultation. We will follow with the patient postoperatively. [id number]/[facility] #: [id number] [facility]
[2018-04-29] MEDS: Docusate CAP* 100 MG PO SCH (21:33)
[2018-04-29] MEDS: Magnesium Hydroxide LIQ* 30 ML UDC PO SCH (21:33)
[2018-04-29] MEDS: oxyCODONE/Acetamin 5/325 MG* TAB PO PRN (22:18)
[2018-04-29] MEDS: ceFAZolin 1 GM ADVAN(*) 1 GM in NS 0.9% 50 ML* 50 ML IVPB SCH (22:20)
[2018-04-30] MEDS: oxyCODONE TAB* 5 MG TAB PO PRN ×4 (01:09→20:58)
[2018-04-30] MEDS: Lactated Ringers 1000 ML Bag* 1,000 ML IV SCH (05:30)
[2018-04-30 05:59] LABS: Hematocrit 32 % (35-47); Hemoglobin 10.7 g/dl (12.0-16.0); Mean Platelet Volume 8.8 fL (7.4-10.4); Platelet Count 85 10^3/ul (150-450)
[2018-04-30 06:09] LABS: BUN/Creatinine Ratio 19.4 (8-20); Calcium 8.8 mg/dL (8.6-10.3); EGFR African American 104.7 (>60); EGFR Non-African American 86.5 (>60); Potassium 4.5 mmol/L (3.5-5.0)
[2018-04-30] MEDS: ceFAZolin 1 GM ADVAN(*) 1 GM in NS 0.9% 50 ML* 50 ML IVPB SCH ×2 (06:24→14:33)
[2018-04-30] MEDS: Magnesium Hydroxide LIQ* 30 ML UDC PO SCH ×2 (08:55→20:57)
[2018-04-30] MEDS: Docusate CAP* 100 MG PO SCH ×2 (08:55→20:57)
[2018-04-30] MEDS: oxyCODONE/Acetamin 5/325 MG* TAB PO PRN (08:55)
[2018-04-30] MEDS: Vitamin THERAPEUTIC TAB PO SCH (08:55)
[2018-04-30] MEDS: Enoxaparin(*) 30 MG/0.3 ML SYR SUBCUT SCH (08:59)
[2018-04-30] MEDS ORDERED: Valsartan TAB* 160 MG PO SCH (09:00)
[2018-04-30] MEDS ORDERED: amLODIPine TAB* 5 MG PO SCH (09:00)
--- NOTE | 2018-04-30 10:37 | PN ---
Subjective Date of Service: 04/30/18 Interval History: Pt got hypotensive today with SBP<100, and feels overall "weak". Did well with PT though. Objective Active Medications: Acetaminophen (Tylenol Tab*) 650 mg PO Q8H PRN PRN Reason: PAIN OR TEMPERATURE Bisacodyl (Dulcolax Supp*) 10 mg NV DAILY PRN PRN Reason: constipation Cyclobenzaprine HCl (Flexeril Tab*) 5 mg PO TID PRN PRN Reason: SPASMS Diphenhydramine HCl (Benadryl Iv*) 25 mg IV Q6H PRN PRN Reason: itching Docusate Sodium (Colace Cap*) 100 mg PO BID [facility] Last Admin: 04/30/18 08:55 Dose: 100 mg Enoxaparin Sodium (Lovenox(*)) 30 mg SUBCUT Q24H [facility] Last Admin: 04/30/18 08:59 Dose: 30 mg Cefazolin Sodium 1 gm/ Sodium (Chloride) 50 mls @ 200 mls/hr IVPB Q8H [facility] Stop: 04/30/18 14:44 Last Admin: 04/30/18 06:24 Dose: 200 mls/hr Lactated Ringer's (Lactated Ringers 1000 Ml Bag*) 1,000 mls @ 100 mls/hr IV PER RATE [facility] Last Admin: 04/30/18 05:30 Dose: 100 mls/hr Lactulose (Lactulose*) 30 ml PO Q6H PRN PRN Reason: constipation Magnesium Hydroxide (Milk Of Magnesia Liq*) 30 ml PO BID [facility] Last Admin: 04/30/18 08:55 Dose: 30 ml Magnesium Hydroxide (Milk Of Magnesia Liq*) 30 ml PO Q6H PRN PRN Reason: constipation Morphine Sulfate (Morphine Inj ((Syringe))*) 2 mg IV Q2H PRN PRN Reason: PAIN Multivitamins (Theragran Tab*) 1 tab PO DAILY [facility] Last Admin: 04/30/18 08:55 Dose: 1 tab Ondansetron HCl (Zofran Inj*) 4 mg IV Q6H PRN PRN Reason: nausea Oxycodone HCl (Roxycodone Tab*) 10 mg PO Q4H PRN PRN Reason: PAIN - SEVERE Last Admin: 04/30/18 05:26 Dose: 10 mg Oxycodone/Acetaminophen (Percocet 5/325 Tab*) 1 tab PO Q3H PRN PRN Reason: PAIN - MODERATE Oxycodone/Acetaminophen (Percocet 5/325 Tab*) 2 tab PO Q3H PRN PRN Reason: PAIN - MODERATE Last Admin: 04/30/18 08:55 Dose: 2 tab Pharmacy Profile Note (Coumadin Daily Reminder*) 1 note FOLLOW UP 1700 MEHREEN Warfarin Sodium (Coumadin Tab(*)) 8 mg PO ONCE@1700 ONE; Protocol Stop: 04/30/18 17:01 Vital Signs - 8 hr 04/30/18 04/30/18 04/30/18 02:37 02:49 05:21 Temperature Pulse Rate Respiratory 16 Rate Blood Pressure 102/58 104/60 (mmHg) O2 Sat by Pulse Oximetry 04/30/18 04/30/18 04/30/18 05:26 05:27 07:38 Temperature 97.0 F Pulse Rate 68 Respiratory 16 16 16 Rate Blood Pressure 99/54 (mmHg) O2 Sat by Pulse 100 Oximetry 04/30/18 08:55 Temperature Pulse Rate Respiratory 16 Rate Blood Pressure (mmHg) O2 Sat by Pulse Oximetry Oxygen Devices in Use Now: Nasal Cannula Appearance: 72 yo F in nAD, aAOx3 Eyes: No Scleral Icterus, PERRLA Ears/Nose/Mouth/Throat: NL Teeth, Lips, Gums, Mucous Membranes Moist Neck: NL Appearance and Movements; NL JVP, Trachea Midline Respiratory: Symmetrical Chest Expansion and Respiratory Effort, Clear to Auscultation Cardiovascular: NL Sounds; No Murmurs; No JVD, RRR Abdominal: NL Sounds; No Tenderness; No Distention Lymphatic: No Cervical Adenopathy Extremities: No Clubbing, Cyanosis Skin: No Nodules or Sclerosis, - - Left knee post op dressing not uncovered Neurological: Alert and Oriented x 3, NL Muscle Strength and Tone Result Diagrams: 04/30/18 05:37 04/30/18 05:37 Assess/Plan/Problems-Billing Assessment: 72 yo F with h/o colon ca, HTN, CLL post elective left knee arthoplasty - Patient Problems (1) History of total knee arthroplasty Comment: s/p L TKR on 04/29/18, management per DR. Pierce (2) History of leukemia Comment: Follows with Dr. Alvarez outpatient. H/o CLL (3) Thrombocytopenia Comment: Plt at 85. Needs to be monitored closely due to tx with lovenox. Pt has h/o thrombocytopenia in the past (4) HTN (hypertension) Comment: Low BP today. Stop amlodipine and valsartan till discharge will tx with more IVF today (5) DVT prophylaxis Comment: Lovenox Status and Disposition: medicine consult, will follow
[2018-04-30] MEDS ORDERED: Lactated Ringers 1000 ML Bag* 1,000 ML IV SCH (11:00)
--- NOTE | 2018-04-30 12:16 | PN ---
Progress Note - Progress Note Date of Service: 04/30/18 SOAP: Subjective: []Pt seen and examined at bedside. She is feeling well without CP, SOB, dizziness, nausea. Left knee pain is well controlled at 0/10 at rest, 8/10 with activity. She has a history of CLL followed by Dr Alvarez. PLT count is low at 85. Has neuropathy of BL LE without change since surgery Objective: []General: Well appearing, NAD LLE: Left knee dressing CDI, cryo cuff in use, thigh is soft, DF/PF intact, sensation intact to light touch distally though with baseline neuropathy, DP2+, capillary refill less than two seconds distally. Calves supple and nontender without erythema, edema or palpable cords Assessment: []POD 1 sp left total knee replacement 04/29 Dr Pierce Plan: []WBAT PT/OT Lovenox bridge to coumadin, Coumadin 8 mg today. Low BPs, maintenance fluid running. Vital Signs Temp 96.7 F 04/30/18 11:21 Pulse 62 04/30/18 11:21 Resp 16 04/30/18 12:02 BP 98/53 04/30/18 11:21 Pulse Ox 98 04/30/18 11:21 Intake & Output 04/29/18 04/30/18 04/30/18 18:59 06:59 18:59 Intake Total 2350 2150 346 Output Total 175 1050 300 Balance 2175 1100 46 Weight 160 lb Intake: IV Fluids 2350 1190 296 LR 2300 1190 296 NS 50ML, Cefazolin 2G 50 IVPB 50 ABX - CEFAZOLIN 50 Oral 960 Output: Urine 300 Farmer 175 1050 Laboratory Last Values Hgb 10.7 g/dl (12.0-16.0) L 04/30/18 05:37 Hct 32 % (35-47) L 04/30/18 05:37 Plt Count 85 10^3/ul (150-450) L D 04/30/18 05:37 MPV 8.8 fL (7.4-10.4) 04/30/18 05:37 INR (Anticoag Therapy) 1.00 (0.77-1.02) 04/30/18 05:37 Sodium 136 mmol/L (135-145) 04/30/18 05:37 Potassium 4.5 mmol/L (3.5-5.0) 04/30/18 05:37 Chloride 104 mmol/L (101-111) 04/30/18 05:37 Carbon Dioxide 29 mmol/L (22-32) 04/30/18 05:37 Anion Gap 3 mmol/L (2-11) 04/30/18 05:37 BUN 13 mg/dL (6-24) 04/30/18 05:37 Creatinine 0.67 mg/dL (0.51-0.95) 04/30/18 05:37 Est GFR ( Amer) 104.7 (>60) 04/30/18 05:37 Est GFR (Non-Af Amer) 86.5 (>60) 04/30/18 05:37 BUN/Creatinine Ratio 19.4 (8-20) 04/30/18 05:37 Glucose 171 mg/dL (70-100) H 04/30/18 05:37 Calcium 8.8 mg/dL (8.6-10.3) 04/30/18 05:37
--- NOTE | 2018-04-30 12:22 | OP ---
DATE OF OPERATION: 04/29/18 - ROOM #339 DATE OF : 45 ATTENDING SURGEON: Allison Pierce MD MAILING JOGGER: DERICK Glass. Ms. Powers did help throughout the procedure with preparation of the leg, wound retraction, manipulation of the knee, and wound closure. ANESTHESIOLOGIST: Dr. Silva. 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 POST-OP DIAGNOSIS: Severe degenerative osteoarthritis of the left knee with valgus deformity, osteopenia. OPERATIVE PROCEDURE: Left total knee arthroplasty. TOURNIQUET TIME: 53 minutes. COMPLICATIONS: None. ESTIMATED BLOOD LOSS: 200 cc. SPECIMEN: Bone and cartilage to the left knee joint sent to pathology. HARDWARE USED: This is cemented [employer] total knee arthroplasty hardware. Two packages of Simplex bone cement. For the femur, a left size 6 narrow posterior stabilized Legion femoral component. For the tibia, a left size 5 tibial base plate Barbara II. For the insert, a 9 mm posterior stabilized articular insert size 5/6 and for the patella, a 32-mm 3-peg all- poly patella with 7.5 thickness. BRIEF HISTORY/INDICATIONS: Ms. Coto is a 72-year-old female with years of increasingly severe left knee pain and valgus deformity. She failed conservative treatment with antiinflammatories, pain medications, intraarticular injections, and physical therapy. Her radiographs showed bone-on- bone arthritis. Due to continued pain and decreased quality of life, she elected to undergo left total knee arthroplasty. Informed consent was obtained from the patient. She understood the risks of surgery included, but were not limited to bleeding, infection, damage to nearby structures, continued pain, need for further surgery, intraoperative fractures, nerve palsy, hardware failure or loosening, knee stiffness, loss of motion, stroke, heart attack, blood clot, and . She wished to proceed. INTRAOPERATIVE FINDINGS: Intraoperatively, the patient was noted to have complete loss of cartilage at all 3 compartments. She had significant osteopenia, which was severe and was noted throughout the case. DESCRIPTION OF PROCEDURE: Ms. Coto was identified in the preanesthesia unit. Her left lower extremity was marked as the correct operative site. Informed consent was signed and placed in the chart. The patient was taken to the operating room and placed under anesthesia. A Farmer catheter was placed. Tourniquet was placed on the left thigh. Left lower extremity was prepped and draped in the usual sterile fashion. Preop time-out was made to correctly identify the patient side and site. Appropriate perioperative antibiotics were given within 1 hour of incision. Tourniquet was inflated and total tourniquet time for this procedure was 53 minutes. A midline incision was made with a 10 blade carried down to the extensor mechanism. A new 10-blade was used to make a standard medial parapatellar arthrotomy. The patella was subluxed laterally. Electrocautery was used to elevate the soft tissues off the superomedial tibia to the mid sagittal plane. The knee was flexed up. The anterior horn of the lateral meniscus and ACL were sharply released. A drill was used to enter the distal femur. Intramedullary distal femoral cutting guide was pinned on the distal femur. Lateral femoral condylar hypoplasia was noted and accounted for. Oscillating saw was used to make the distal femoral cut. External rotation guide was pinned on the distal femur. Distal femur was sized to a size 6. Size 6 multi-cutting jig was pinned on the distal femur. Oscillating saw was used to make the appropriate 4 chamfer cuts. PCL was completely released. The tibia was subluxed anteriorly. Extramedullary tibial cutting guide was pinned on the proximal tibia. Oscillating saw was used to make a proximal tibial cut perpendicular to the mechanical axis of the tibia. The bone was carefully removed. The knee was brought out into full extension. Spacer block had good fit with the knee in full extension. Medial and lateral ligaments were well balanced. Flexion and extension gaps were well balanced. The knee was flexed up. Lamina medical coding specialist was placed both medially and laterally. Any remaining meniscus was carefully removed using electrocautery. Curved osteotome was used to remove any posterior osteophytes. Tibial tray and drop laurie was placed and once again confirmed a satisfactory tibial cut. Size 6 narrow left femoral trial was impacted on to the distal femur and had excellent fit and stability. The box for the posterior stabilized implant was prepared using a reamer and box-cut osteotome. A size 5 tibial tray trial with a 9-mm insert trial was placed and the knee was taken through range of motion. The knee had full extension to 130 degrees of flexion. There was satisfactory patellofemoral tracking. The patella was everted. 7 mm of patellar bone and cartilage was carefully removed using an oscillating saw. The patella was sized to a size 32. Three peg holes were drilled through the size 32 patella. 32 trial patella with 7.5 thickness was placed and the knee was taken through range of motion. There was satisfactory patellofemoral tracking. All trials were carefully removed. Tibia was subluxed anteriorly and sized to a size 5. Proximal tibia was prepared using a size 5 keel punch. All bony cut surfaces were copiously irrigated with sterile saline and dried. Final implants were cemented into place starting with the tibia followed by the femur and last the patella. A 9-mm insert trial was placed and the knee was brought out into full extension. The tourniquet was turned down at 53 minutes. Electrocautery was used to obtain meticulous hemostasis. The knee was copiously irrigated with sterile saline. Once the cement had fully cured, the insert trial was removed. Any excess cement was removed from around the capsule and hardware. Final insert chosen was a 9-mm posterior stabilized articular insert size 5/6. This was locked into position on the tibial tray. Stability of the insert was checked and rechecked and noted to be stable. The extensor mechanism was closed using interrupted #1 Vicryl. The rest of the incision was closed in a layered fashion using 0 and 2-0 Vicryls. Skin was closed using running 3-0 nylon suture. Sterile Xeroform, 4x4s, and Webril were used to cover the incision. Ethan wrap and cold pack were placed over this. The patient's anesthesia was reversed without difficulty. She was taken to the PACU in stable condition. Intended weight bearing will be weight bearing as tolerated. Intended DVT prophylaxis will be Eliquis. [id number]/[facility] #: [id number] [facility] CENTERInessa
[2018-04-30] MEDS ORDERED: oxyCODONE TAB* 5 MG TAB PO PRN (14:40)
[2018-04-30] MEDS ORDERED: Warfarin TAB(*) 4 MG PO ONE (17:00)
[2018-04-30] MEDS: traMADol TAB* 50 MG PO PRN (18:38)
[2018-04-30] MEDS: Morphine INJ* 2 MG/ML 1 ML SYRINGE (TWO MG - NEW SYRINGE VERSION) IV PRN (20:46)
[2018-05-01] MEDS: oxyCODONE TAB* 5 MG TAB PO PRN ×2 (01:02→07:46)
[2018-05-01] MEDS: Cyclobenzaprine TAB* 10 MG PO PRN ×2 (01:03→09:12)
[2018-05-01] MEDS: Morphine INJ* 2 MG/ML 1 ML SYRINGE (TWO MG - NEW SYRINGE VERSION) IV PRN (02:29)
[2018-05-01] MEDS: traMADol TAB* 50 MG PO PRN (02:34)
[2018-05-01 06:56] LABS: Hematocrit 30 % (35-47); Hemoglobin 9.8 g/dl (12.0-16.0); Mean Corpuscular HGB Conc 33 g/dl (31-36); Mean Corpuscular Hemoglobin 32 pg (27-31); Mean Corpuscular Volume 95 fL (80-97); Mean Platelet Volume 8.8 fL (7.4-10.4); Platelet Count 74 10^3/ul (150-450); Red Blood Count 3.11 10^6/ul (4.00-5.40); Red Cell Distribution Width 15 % (10.5-15); White Blood Count 23.7 10^3/ul (3.5-10.8)
[2018-05-01 06:59] LABS: INR 1.65 (0.77-1.02)
[2018-05-01 07:12] LABS: BUN/Creatinine Ratio 18.8 (8-20); Calcium 8.8 mg/dL (8.6-10.3); EGFR African American 101.2 (>60); EGFR Non-African American 83.6 (>60); Potassium 4.5 mmol/L (3.5-5.0)
[2018-05-01 07:26] LABS: ABS Basophils 0.1 10^3/ul (0-0.2); ABS Eosinophils 0 10^3/ul (0-0.6); ABS Lymphocytes 19.3 10^3/ul (1.0-4.8); ABS Monocytes 0.6 10^3/ul (0-0.8); ABS Neutrophils 3.7 10^3/ul (1.5-7.7); ABS Nucleated RBC 0.1 10^3/ul; Eosinophil % 0.1 %; Lymphocyte % 81.4 %; Nucleated Red Blood Cells % 0.3
[2018-05-01] MEDS: Vitamin THERAPEUTIC TAB PO SCH (09:04)
[2018-05-01] MEDS: Docusate CAP* 100 MG PO SCH ×2 (09:04→21:37)
[2018-05-01] MEDS: Enoxaparin(*) 30 MG/0.3 ML SYR SUBCUT SCH (09:04)
[2018-05-01] MEDS: Magnesium Hydroxide LIQ* 30 ML UDC PO SCH ×2 (09:05→21:38)
[2018-05-01] MEDS ORDERED: Gabapentin CAP(*) 300 MG PO PRN (09:31)
[2018-05-01] MEDS ORDERED: traMADol TAB* 50 MG PO PRN (09:31)
--- NOTE | 2018-05-01 09:34 | PN ---
Progress Note - Progress Note Date of Service: 05/01/18 SOAP: Subjective: []Pt seen at bedside. She had difficulty with pain overnight wiht pain as severe as 01/08. Denies CP, SOB, dizziness, nausea. Objective: [] General: Well appearing, NAD LLE: Left knee dressing changed, incision CDI, cryo cuff in use, thigh is soft, DF/PF intact, sensation intact to light touch distally though with baseline neuropathy, DP2+, capillary refill less than two seconds distally. Calves supple and nontender without erythema, edema or palpable cords Assessment: []POD 2 sp left total knee replacement 04/29 Dr Pierce Plan: []WBAT PT/OT Lovenox bridge to coumadin, Coumadin 6 mg today. Added long acting morphine, standing tylenol, prn gabapentin. caution with short acting narcotics now that long acting morphine has been added, assess for sedation before giving narcotics Chronic elevated WBC due to CLL. Follow plts carefully Vital Signs Temp 99.2 F 05/01/18 07:26 Pulse 89 05/01/18 07:26 Resp 18 05/01/18 09:12 BP 107/58 05/01/18 07:26 Pulse Ox 96 05/01/18 07:26 Intake & Output 04/30/18 05/01/18 05/01/18 18:59 06:59 18:59 Intake Total 596 1410 0 Output Total 750 700 300 Balance -154 710 -300 Intake: IV Fluids 296 LR 296 IVPB 50 ABX - CEFAZOLIN 50 Oral 250 1410 0 Output: Urine 750 700 300 Other: # Bowel Movements 0 Laboratory Last Values WBC 23.7 10^3/ul (3.5-10.8) H 05/01/18 06:42 RBC 3.11 10^6/ul (4.00-5.40) L 05/01/18 06:42 Hgb 9.8 g/dl (12.0-16.0) L 05/01/18 06:42 Hct 30 % (35-47) L 05/01/18 06:42 MCV 95 fL (80-97) 05/01/18 06:42 MCH 32 pg (27-31) H 05/01/18 06:42 MCHC 33 g/dl (31-36) 05/01/18 06:42 RDW 15 % (10.5-15) 05/01/18 06:42 Plt Count 74 10^3/ul (150-450) L 05/01/18 06:42 MPV 8.8 fL (7.4-10.4) 05/01/18 06:42 Neut % (Auto) 15.4 % 05/01/18 06:42 Lymph % (Auto) 81.4 % 05/01/18 06:42 Ralls % (Auto) 2.6 % 05/01/18 06:42 Eos % (Auto) 0.1 % 05/01/18 06:42 Baso % (Auto) 0.5 % 05/01/18 06:42 Absolute Neuts (auto) 3.7 10^3/ul (1.5-7.7) 05/01/18 06:42 Absolute Lymphs (auto) 19.3 10^3/ul (1.0-4.8) H 05/01/18 06:42 Absolute Monos (auto) 0.6 10^3/ul (0-0.8) 05/01/18 06:42 Absolute Eos (auto) 0 10^3/ul (0-0.6) 05/01/18 06:42 Absolute Basos (auto) 0.1 10^3/ul (0-0.2) 05/01/18 06:42 Absolute Nucleated RBC 0.1 10^3/ul 05/01/18 06:42 Nucleated RBC % 0.3 05/01/18 06:42 INR (Anticoag Therapy) 1.65 (0.77-1.02) H 05/01/18 06:42 Sodium 138 mmol/L (135-145) 05/01/18 06:42 Potassium 4.5 mmol/L (3.5-5.0) 05/01/18 06:42 Chloride 103 mmol/L (101-111) 05/01/18 06:42 Carbon Dioxide 33 mmol/L (22-32) H 05/01/18 06:42 Anion Gap 2 mmol/L (2-11) 05/01/18 06:42 BUN 13 mg/dL (6-24) 05/01/18 06:42 Creatinine 0.69 mg/dL (0.51-0.95) 05/01/18 06:42 Est GFR ( Amer) 101.2 (>60) 05/01/18 06:42 Est GFR (Non-Af Amer) 83.6 (>60) 05/01/18 06:42 BUN/Creatinine Ratio 18.8 (8-20) 05/01/18 06:42 Glucose 117 mg/dL (70-100) H 05/01/18 06:42 Calcium 8.8 mg/dL (8.6-10.3) 05/01/18 06:42
[2018-05-01] MEDS ORDERED: Gabapentin TAB(NF) 600 MG PO SCH (10:00)
[2018-05-01] MEDS ORDERED: traMADol TAB* 50 MG PO SCH (10:00)
[2018-05-01] MEDS: Acetaminophen TAB* 325 MG PO SCH ×2 (10:57→17:16)
[2018-05-01] MEDS: Morphine TAB Extended Release (*) 15 MG TAB.ER PO SCH (10:57)
--- NOTE | 2018-05-01 14:56 | PN ---
Subjective Date of Service: 05/01/18 Interval History: Patient seen and examined. States she is in a lot of pain, cannot tolerate sitting upright.Discussed with patient the importance of ambulation during post- op recovery. Denies SOB, no chest pain, no fevers or chills. Objective Active Medications: Acetaminophen (Tylenol Tab*) 650 mg PO Q8H [facility] Last Admin: 05/01/18 10:57 Dose: 650 mg Bisacodyl (Dulcolax Supp*) 10 mg [place] DAILY PRN PRN Reason: constipation Cyclobenzaprine HCl (Flexeril Tab*) 5 mg PO TID PRN PRN Reason: SPASMS Last Admin: 05/01/18 09:12 Dose: 5 mg Diphenhydramine HCl (Benadryl Iv*) 25 mg IV Q6H PRN PRN Reason: itching Docusate Sodium (Colace Cap*) 100 mg PO BID [facility] Last Admin: 05/01/18 09:04 Dose: 100 mg Enoxaparin Sodium (Lovenox(*)) 30 mg SUBCUT Q24H [facility] Last Admin: 05/01/18 09:04 Dose: 30 mg Gabapentin (Neurontin Cap(*)) 300 mg PO BID PRN PRN Reason: PAIN - MODERATE Lactated Ringer's (Lactated Ringers 1000 Ml Bag*) 1,000 mls @ 100 mls/hr IV PER RATE [facility] Last Admin: 04/30/18 05:30 Dose: 100 mls/hr Lactulose (Lactulose*) 30 ml PO Q6H PRN PRN Reason: constipation Magnesium Hydroxide (Milk Of Magnesia Liq*) 30 ml PO BID [facility] Last Admin: 05/01/18 09:05 Dose: Not Given Magnesium Hydroxide (Milk Of Magnesia Liq*) 30 ml PO Q6H PRN PRN Reason: constipation Morphine Sulfate (Morphine Inj ((Syringe))*) 2 mg IV Q2H PRN PRN Reason: PAIN Last Admin: 05/01/18 02:29 Dose: 2 mg Morphine Sulfate (Ms Contin(*)) 15 mg PO Q12H [facility] Last Admin: 05/01/18 10:57 Dose: 15 mg Multivitamins (Theragran Tab*) 1 tab PO DAILY [facility] Last Admin: 05/01/18 09:04 Dose: 1 tab Ondansetron HCl (Zofran Inj*) 4 mg IV Q6H PRN PRN Reason: nausea Last Admin: 05/01/18 01:22 Dose: 4 mg Oxycodone HCl (Roxycodone Tab*) 10 mg PO Q4H PRN PRN Reason: PAIN - SEVERE Last Admin: 05/01/18 07:46 Dose: 10 mg Oxycodone HCl (Roxycodone Tab*) 5 mg PO Q4H PRN PRN Reason: PAIN - MODERATE Pharmacy Profile Note (Coumadin Daily Reminder*) 1 note FOLLOW UP 1700 [facility] Last Admin: 04/30/18 18:40 Dose: 1 note Tramadol HCl (Ultram*) 50 mg PO Q6H PRN PRN Reason: PAIN - MODERATE Warfarin Sodium (Coumadin Tab(*)) 6 mg PO ONCE@1700 ME[facility]RE[facility]; Protocol Stop: 05/01/18 17:01 Vital Signs - 8 hr 05/01/18 05/01/18 05/01/18 07:26 07:46 07:54 Temperature 99.2 F Pulse Rate 89 Respiratory 16 18 16 Rate Blood Pressure 107/58 (mmHg) O2 Sat by Pulse 96 Oximetry 05/01/18 05/01/18 05/01/18 07:55 08:00 09:12 Temperature Pulse Rate Respiratory 16 18 18 Rate Blood Pressure (mmHg) O2 Sat by Pulse Oximetry 05/01/18 05/01/18 05/01/18 10:57 11:05 11:08 Temperature Pulse Rate 66 74 Respiratory 18 Rate Blood Pressure 75/49 110/78 (mmHg) O2 Sat by Pulse 92 95 Oximetry 05/01/18 05/01/18 05/01/18 12:33 12:34 13:20 Temperature Pulse Rate Respiratory 18 18 18 Rate Blood Pressure (mmHg) O2 Sat by Pulse Oximetry Oxygen Devices in Use Now: None Appearance: alert, mild distress Eyes: No Scleral Icterus, PERRLA Ears/Nose/Mouth/Throat: NL Teeth, Lips, Gums, Mucous Membranes Moist Neck: NL Appearance and Movements; NL JVP, Trachea Midline Respiratory: Symmetrical Chest Expansion and Respiratory Effort, Clear to Auscultation Cardiovascular: NL Sounds; No Murmurs; No JVD, RRR, No Edema Abdominal: NL Sounds; No Tenderness; No Distention Extremities: No Edema, No Clubbing, Cyanosis Skin: No Rash or Ulcers, No Nodules or Sclerosis Neurological: Alert and Oriented x 3 Nutrition: Taking PO's Result Diagrams: 05/01/18 06:42 05/01/18 06:42 Assess/Plan/Problems-Billing Assessment: This is a 72 yo F with h/o colon ca, HTN, CLL status post elective left knee arthoplasty - Patient Problems (1) Status post total left knee replacement Code(s): Z96.652 - PRESENCE OF LEFT ARTIFICIAL KNEE JOINT SNOMED Code(s): 2834490508040 Comment: - POD2 - POC as per ortho - Pain control, OOB with PT/OT, bowel regimen, DVT prophy (2) Thrombocytopenia Code(s): D69.6 - THROMBOCYTOPENIA, UNSPECIFIED SNOMED Code(s): 480191106 Comment: - PLTS 74 today, discussed with ortho, patient requires lovenox for only one more day, will continue to monitor, no s/s bleeding (3) Colon cancer Comment: - With hx of colectomy, stable (4) DVT prophylaxis Code(s): NDT0806 - SNOMED Code(s): 040358374 Comment: - On lovenox coumadin bridge (5) HTN (hypertension) Code(s): I10 - ESSENTIAL (PRIMARY) HYPERTENSION SNOMED Code(s): 99500845 Comment: - BP improved after IVF yesterday - Restart amlodipine and valsartan at discharge (6) History of leukemia Code(s): Z85.6 - PERSONAL HISTORY OF LEUKEMIA SNOMED Code(s): 132738266 Comment: - Follows with Dr. Alvarez outpatient for CLL, follow WBC counts (as high as 46 earlier this month, 23 today) (7) Full code status Code(s): Z78.9 - OTHER SPECIFIED HEALTH STATUS SNOMED Code(s): 434891358 Status and Disposition: Inpatient, dispo as per ortho.
[2018-05-01] MEDS ORDERED: Warfarin TAB(*) 6 MG PO SCH (17:00)
[2018-05-02] MEDS: Acetaminophen TAB* 325 MG PO SCH ×2 (00:59→09:54)
[2018-05-02] MEDS: Morphine TAB Extended Release (*) 15 MG TAB.ER PO SCH ×2 (01:00→12:35)
[2018-05-02 06:54] VITALS: BP 105/60
[2018-05-02 07:15] LABS: Hematocrit 28 % (35-47); Hemoglobin 9.5 g/dl (12.0-16.0); Mean Platelet Volume 9.1 fL (7.4-10.4); Platelet Count 72 10^3/ul (150-450)
[2018-05-02 07:19] LABS: INR 3.09 (0.77-1.02)
[2018-05-02] MEDS: Enoxaparin(*) 30 MG/0.3 ML SYR SUBCUT SCH (08:05)
[2018-05-02] MEDS: Vitamin THERAPEUTIC TAB PO SCH (08:05)
[2018-05-02] MEDS: Magnesium Hydroxide LIQ* 30 ML UDC PO SCH (08:05)
[2018-05-02] MEDS: Docusate CAP* 100 MG PO SCH (08:05)
--- NOTE | 2018-05-02 10:19 | PN ---
Progress Note - Progress Note Date of Service: 05/02/18 SOAP: Subjective: [] Patient seen at bedside. Feeling less woozy with long acting narcotic. Pain well controlled. Feels ready for discharge home this afternoon. Objective: [] Vital Signs Temp 98.3 F 05/02/18 03:16 Pulse 86 05/02/18 03:16 Resp 16 05/02/18 03:16 BP 105/60 05/02/18 03:16 Pulse Ox 100 05/02/18 03:16 Intake & Output 05/01/18 05/02/18 05/02/18 18:59 06:59 18:59 Intake Total 310 1080 480 Output Total 900 1005 Balance -590 75 480 Intake: Oral 310 1080 480 Output: GISELL #1 5 Urine 900 1000 Laboratory Results - last 24 hr 05/01/18 05/02/18 05/02/18 06:42 06:55 06:55 Hgb 9.5 L Hct 28 L Plt Count 72 L MPV 9.1 Hem Pathologist Commnt INR (Anticoag Therapy) 3.09 H Left knee incision benign calf NT +DF left ankle sensation and circulation intact Assessment: []s/p LTK POD #3 Plan: []Pt/OT WBAT LLE home today Long acting MsO4 on discharge Follow up 10-[address] Pierce Coumadin for DVT prophylaxis, hold dose today.
--- NOTE | 2018-05-02 17:50 | DS ---
DISCHARGE SUMMARY: DATE OF ADMISSION: 04/29/18 DATE OF DISCHARGE: 05/02/18 ATTENDING PHYSICIAN: Dr. Allison Pierce.* (DICTATED BY DERICK TATE) ADMISSION DIAGNOSIS: Severe end-stage degenerative osteoarthritis, left knee with valgus deformity. DISCHARGE DIAGNOSIS: Severe end-stage degenerative osteoarthritis, left knee with valgus deformity and osteopenia. SURGERY PERFORMED: Left total knee arthroplasty. HOSPITAL COURSE: The patient is a 72-year-old female with increasingly severe left knee pain and valgus deformity. She failed conservative management with anti- inflammatories, pain medications, intraarticular injections, and physical therapy. Her x-rays revealed [id number] osteoarthritis. Due to her continued pain and decreased quality of life, she elected to proceed with surgical intervention. She was taken to the operating room under the care of Dr. Allison Pierce on the date of 04/29/18 for the aforementioned procedure. She tolerated the procedure well and left the operating room in stable condition. Postoperatively, she had some difficulty with pain management and felt somewhat dizzy with the short-acting narcotics. She was transitioned to MS Contin 15 mg p.o. twice daily and this helped both her pain and her dizziness. She progressed satisfactorily with the physical therapy and occupational therapy goals, bearing weight as tolerated in the left lower extremity. She had no further difficulties during her hospital stay and it was felt she was stable medically and orthopedically for discharge to home on the date of 05/02/18. CONDITION ON DISCHARGE: Temperature is 98.3, pulse 86, respiratory rate 16, O2 saturation 100% on room air, her blood pressure 105/60. Examination of her left knee reveals her incision to be healing without evidence of infection. There is no drainage. Her calf is soft and nontender. She has active dorsiflexion of the left ankle and has full sensation and circulation distally. PLAN: Discharged to home. She will continue with physical therapy exercises of the left knee. She is provided with a prescription of MS Contin 15 mg p.o. b.i.d. #14, 0 refills. She is also going home on Coumadin. There will be no Coumadin given today, 05/02/18 as her INR is 3.09. She will take 2 mg of Coumadin on 05/03/18; and 2 mg of Coumadin on 05/04/18. She will have a repeat INR blood draw on 05/05/18 with dosages of Coumadin to follow from the office. She is scheduled to follow up in the office with Dr. Pierce in roughly 10 to 14 days. All questions were answered. DERICK TATE [id number]/[facility] #: [id number] LIZZIE
== END 2018-05-02 14:30 | disposition home health service (06) | DRG 470 ==
LOC: AA 12:16 → SSU 19:42
PROVIDERS: ADMIT Orthopaedic Surgery Adult Reconstructive Orthopaedic Surgery; ATTEND Orthopaedic Surgery Adult Reconstructive Orthopaedic Surgery
PROC: 0SRD0J9 Replacement of Left Knee Joint with Synthetic Substitute, Cemented, Open Approach (ICD-10-PCS; principal; 2018-04-29 15:00)
DX: M17.0 Bilateral primary osteoarthritis of knee (principal); C91.10 Chronic lymphocytic leukemia of B-cell type not having achieved remission; M21.062 Valgus deformity, not elsewhere classified, left knee; I10 Essential (primary) hypertension; G62.9 Polyneuropathy, unspecified; M23.8X2 Other internal derangements of left knee; M85.862 Other specified disorders of bone density and structure, left lower leg; J45.909 Unspecified asthma, uncomplicated; M25.762 Osteophyte, left knee; Z85.038 Personal history of other malignant neoplasm of large intestine; Z90.721 Acquired absence of ovaries, unilateral; Z82.49 Family history of ischemic heart disease and other diseases of the circulatory system; Z72.89 Other problems related to lifestyle; Z86.14 Personal history of Methicillin resistant Staphylococcus aureus infection; Z92.21 Personal history of antineoplastic chemotherapy; Z90.49 Acquired absence of other specified parts of digestive tract; Z98.49 Cataract extraction status, unspecified eye; Z80.0 Family history of malignant neoplasm of digestive organs; R42 Dizziness and giddiness; D69.6 Thrombocytopenia, unspecified; I95.9 Hypotension, unspecified; T40.605A Adverse effect of unspecified narcotics, initial encounter; Y92.239 Unspecified place in hospital as the place of occurrence of the external cause
CPT/HCPCS: 36415; 80048; 85014; 85018; 85025; 85049; 85060; 85610; 88305; 88311; A9270-GY; C1776; G8978-GP-CJ; G8979-GP-CI; G8987-GO-CJ; G8988-GO-CI; J0690; J1100; J1650; J2250; J2270; J2405; J2704; J2795; J3010